=== PATIENT | female | born 1950 | race Asian ===

== ENCOUNTER 2017-02-22 07:13 | Outpatient (CLI) | payer OTHER ==
[2017-02-22 07:45] LABS: HEMOGLOBIN 13.4 gm/dL (11.7-16.1); MEAN CELL VOLUME 94.7 fl (81-100); MEAN CORPUSCULAR HEMOGLOBIN 31.7 pg (27.0-31.0); MEAN CORPUSCULAR HGB CONC 33.4 pg (28.0-36.0); MEAN PLATELET VOLUME 8.1 fl; PLATELET COUNT 183 Th/cmm (150-400); RED BLOOD COUNT 4.23 Mil/cmm (3.80-5.20); RED CELL DISTRIBUTION WIDTH 12.4 % (11.5-20.0)
[2017-02-22 07:46] LABS: URINE BILIRUBIN NEGATIVE (NEGATIVE); URINE BLOOD NEGATIVE (NEGATIVE); URINE GLUCOSE (UA) NEGATIVE (NEGATIVE); URINE KETONE NEGATIVE (NEGATIVE); URINE PH 7.5 (4.6 - 8.0); URINE PROTEIN NEGATIVE (NEGATIVE); URINE UROBILINOGEN 0.2 E.U./dL (0.2 - 1.0)
[2017-02-22 08:19] LABS: URINE COLOR YELLOW
[2017-02-22 08:20] LABS: URINE BACTERIA MODERATE /hpf (NONE SEEN); URINE EPITHELIAL CELLS FEW /lpf (FEW); URINE RBC 0-2 /hpf (0-5)
[2017-02-22 08:26] LABS: WHITE BLOOD COUNT 4.2 Th/cmm (4.8-10.8)
[2017-02-22 08:29] LABS: ALB/GLOB RATIO 1.5 (1.0-1.8); ALKALINE PHOSPHATASE 46 U/L (34-104); ANION GAP 7.4 (7.0-16.0); BAND NEUTROPHILE 2 % (0-10); BILIRUBIN,TOTAL 0.8 mg/dL (0.3-1.0); BUN - UREA NITROGEN 12 mg/dL (7-25); CHLORIDE 101 mEq/L (98-107); CHOLESTEROL 201 mg/dL (<200); EOSINOPHIL 3 % (0-5); GLUCOSE 94 mg/dL (70-105); NEUTROPHILS 45 % (40-80); PLATELET ESTIMATE ADEQUATE (NORMAL); POTASSIUM SERUM 4.4 mEq/L (3.5-5.1); SGOT 25 U/L (13-39); SGPT/ALT 20 U/L (7-52); SODIUM SERUM 132 mEq/L (136-145); TOTAL CELLS COUNTED 100; TRIGLYCERIDES 76 mg/dL (<150)
== END 2017-02-22 07:45 | disposition home or self-care (01) ==
LOC: EEVIPCON 07:13 → LAB 07:13
PROVIDERS: ATTEND Family Medicine
DX: Z00.00 Encounter for general adult medical examination without abnormal findings (principal)
CPT/HCPCS: 36415-UA; 80053-TC; 80061-TC; 81001-TC; 82652-90; 84443-TC; 85007-TC; 85027-TC

== ENCOUNTER 2017-12-03 10:23 | Outpatient (CLI) | payer OTHER ==
--- NOTE | 2017-12-03 13:11 | Diagnostic Imaging Report ---
Right foot (4 views) HISTORY: Pain There are severe degenerative changes with marked joint space narrowing about the first metatarsal phalangeal region. Virtual complete obliteration of joint space. Hypertrophic and sclerotic changes noted about the articular surfaces. Slight subluxation about the joint space area. Small spur formation seen off the plantar aspect of the posterior calcaneus. IMPRESSION: 1. 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 2. Small calcaneal spur formation.
== END 2017-12-03 10:54 | disposition home or self-care (01) ==
LOC: RAD 10:23
DX: M19.071 Primary osteoarthritis, right ankle and foot (principal); M77.31 Calcaneal spur, right foot
CPT/HCPCS: 73630-TC-RT

== ENCOUNTER 2019-02-04 09:38 | Outpatient (CLI) | payer OTHER ==
[2019-02-04 10:09] LABS: % BASOPHILS 2.1 % (0.0-2.0); % EOSINOPHILS 0.6 % (0.0-5.0); % MONOCYTES 6.5 % (2.0-10.0); % NEUTROPHILS 61.8 % (40.0-80.0); BASOPHILE ABSOLUTE 0.1 Th/cumm (0-0.2); HEMATOCRIT 43.5 % (41.0-60); HEMOGLOBIN 14.3 gm/dL (12-16); LYMPHOCYTE ABSOLUTE 1.9 Th/cmm (1.5-3.0); MEAN CELL VOLUME 94.8 fl (81-100); MEAN CORPUSCULAR HEMOGLOBIN 31.3 pg (27.0-31.0); MONOCYTE ABSOLUTE 0.4 Th/cmm (0.3-1.0); PLATELET COUNT 180 Th/cmm (150-400); RED BLOOD COUNT 4.58 Mil/cmm (3.80-5.20); RED CELL DISTRIBUTION WIDTH 12.8 % (11.5-20.0); WHITE BLOOD COUNT 6.4 Th/cmm (4.8-10.8)
[2019-02-04 10:11] LABS: URINE SOURCE MIDSTREAM
[2019-02-04 10:16] LABS: URINE BILIRUBIN NEGATIVE (NEGATIVE); URINE BLOOD NEGATIVE (NEGATIVE); URINE GLUCOSE (UA) NEGATIVE (NEGATIVE); URINE KETONE NEGATIVE (NEGATIVE); URINE LEUKOCYTE ESTERASE TRACE (NEGATIVE); URINE MICROSCOPIC INDICATED? YES; URINE NITRATE NEGATIVE (NEGATIVE); URINE PH 6.5 (4.6 - 8.0); URINE PROTEIN NEGATIVE (NEGATIVE)
[2019-02-04 10:37] LABS: ALB/GLOB RATIO 1.4 (1.0-1.8); ALBUMIN 4.3 gm/dL (3.7-5.3); ALKALINE PHOSPHATASE 81 U/L (34-104); ANION GAP 14.3 (7.0-16.0); BUN - UREA NITROGEN 12 mg/dL (7-25); CALCIUM SERUM 10.3 mg/dL (8.6-10.3); CARBON DIOXIDE 24.4 mEq/L (21.0-31.0); CHLORIDE 93 mEq/L (98-107); CHOLESTEROL 241 mg/dL (<200); CREATININE - SERUM 0.9 mg/dL (0.6-1.2); GFR AFRICAN-AMERICAN > 60.0 ml/min (>90); GFR NON AFRICAN-AMERICAN > 60.0 ml/min; GLUCOSE 90 mg/dL (70-105); HDL -HIGH DENSITY LIPOPROTEIN 71 mg/dL (23-92); POTASSIUM SERUM 3.7 mEq/L (3.5-5.1); SGOT 50 U/L (13-39); SGPT/ALT 40 U/L (7-52); SODIUM SERUM 128 mEq/L (136-145); TOTAL PROTEIN,SERUM 7.4 gm/dL (6.0-8.3); TRIGLYCERIDES 127 mg/dL (<150)
[2019-02-04 10:40] LABS: URINE CLARITY SLIGHT CLOUDY (CLEAR); URINE COLOR YELLOW
[2019-02-04 10:41] LABS: URINE BACTERIA 4+ /hpf (NONE SEEN); URINE EPITHELIAL CELLS FEW /lpf (FEW); URINE RBC 0-2 /hpf (0-5)
== END 2019-02-04 10:15 | disposition home or self-care (01) ==
LOC: LAB 09:38
PROVIDERS: ATTEND Family Medicine
DX: Z00.00 Encounter for general adult medical examination without abnormal findings (principal); R94.6 Abnormal results of thyroid function studies
CPT/HCPCS: 36415-UA; 80053-TC; 80061-TC; 81001-TC; 82652-90; 84443-TC; 85025-TC; 87086-90